=== PATIENT | male | born 1970 | race Caucasian/White ===

== ENCOUNTER 2020-08-26 22:30 | Emergency (ER) | payer BC, OTHER ==
[2020-08-26] MEDS ORDERED: fentaNYL 100 MCG/2 ML SDV IM ONE (22:57)
--- NOTE | 2020-08-26 23:03 | EDM.PDOC ---
ED HPI GENERAL MEDICAL PROBLEM - General Chief Complaint: Upper Extremity Injury/Pain Stated Complaint: PAIN POST SURGERY Time Seen by Provider: 08/26/20 22:54 Source of Information: Reports: Patient, RN Notes Reviewed History Limitations: Reports: No Limitations - History of Present Illness INITIAL COMMENTS - FREE TEXT/NARRATIVE: 50-year-old gentleman presents emergency department today complaint of pain and redness over his left wrist, he recently had aspiration of ganglion cyst done and now over the last 12 hours he has developed redness and increased pain in that wrist has felt feverish Left Wrist Pain Score (Numeric/FACES): 10 - Related Data Allergies Allergy/AdvReac Type Severity Reaction Status Date / Time No Known Allergies Allergy Verified 08/26/20 22:44 Home Meds: Home Meds Methylphenidate HCl [Ritalin] 30 mg PO TID 08/26/20 [History] Past Medical History Musculoskeletal History: Reports: Fracture, Other (See Below) Other Musculoskeletal History: carpal tunnel Psychiatric History: Reports: ADD - Infectious Disease History Infectious Disease History: Reports: Chicken Pox, Hepatitis C - Past Surgical History Musculoskeletal Surgical History: Reports: Ganglion Cyst Social & Family History - Tobacco Use Tobacco Use Status *Q: Never Tobacco User - Caffeine Use Caffeine Use: Reports: Coffee - Recreational Drug Use Recreational Drug Use: No Review of Systems - Review of Systems Review Of Systems: See Below Respiratory: Reports: No Symptoms Cardiovascular: Reports: No Symptoms Skin: Reports: Bruising, Rash, Wound ED EXAM, GENERAL - Physical Exam Exam: See Below Free Text/Narrative:: Examination of the right wrist I do appreciate some erythema that is tender to the touch it is warm to the touch all over the right wrist he has limited range of motion secondary to pain radial pulses +2 Exam Limited By: No Limitations General Appearance: Alert, WD/WN, No Apparent Distress Course - Vital Signs Last Recorded V/S: Last Vital Signs Temp 99.1 F 08/26/20 22:46 Pulse 82 08/26/20 22:46 Resp 16 08/26/20 22:46 BP 137/91 H 08/26/20 22:46 Pulse Ox 97 08/26/20 22:46 - Orders/Labs/Meds Orders: Active Orders 24 hr Category Date Time Status fentaNYL [Sublimaze] Med 08/26/20 22:57 Once 50 mcg IM ONETIME ONE Medication Orders Fentanyl (Sublimaze) 50 mcg IM ONETIME ONE Stop: 08/26/20 22:58 Meds: Medications Generic Name Dose Route Start Last Admin Trade Name Renee PRN Reason Stop Dose Admin Fentanyl 50 mcg 08/26/20 22:57 Sublimaze IM 08/26/20 22:58 ONETIME ONE Departure - Departure Time of Disposition: 23:02 Disposition: Home, Self-Care 01 Condition: Fair Clinical Impression: Cellulitis of left wrist - Discharge Information Instructions: Cellulitis, Adult Referrals: PCP,None [Primary Care Provider] - Additional Instructions: Take full course of antibiotics, continue to use ibuprofen for baseline pain control use hydrocodone for breakthrough pain keep your follow-up appointment with orthopedics in the morning Sepsis Event Note (ED) - Evaluation Sepsis Screening Result: No Definite Risk - Focused Exam Vital Signs: Vital Signs Temp Pulse Resp BP Pulse Ox 08/26/20 22:46 99.1 F 82 16 137/91 H 97 08/26/20 22:41 99.1 F 82 16 137/91 H 97 - My Orders Last 24 Hours: My Active Orders 08/26/20 22:57 fentaNYL [Sublimaze] 50 mcg IM ONETIME ONE - Assessment/Plan Last 24 Hours: My Active Orders 08/26/20 22:57 fentaNYL [Sublimaze] 50 mcg IM ONETIME ONE Plan: Assessment Acuity = acute Site and laterality = left wrist cellulitis Etiology = probable bacterial Manifestations = none Location of injury = Home Lab values = none Plan He was provided 50 mcg fentanyl IM x1 placed on antibiotics Keflex 500 mg p.o. 3 times daily x7 days and then hydrocodone 5/325 1 tab p.o. 3 times daily as needed total #4 he has a follow-up appointment with orthopedics tomorrow This note was dictated using [employer] recognition software please call with any questions on syntax or grammar.
== END 2020-08-26 23:16 | disposition home or self-care (01) ==
LOC: JP.ED 22:30
DX: L03.114 Cellulitis of left upper limb (principal)
CPT/HCPCS: 96372; 99283; J3010

== ENCOUNTER 2021-01-26 06:24 | Day surgery (SDC) | payer OTHER ==
[2021-01-26] MEDS ORDERED: Propofol 200 MG/20 ML SDV ONE ×2 (07:08→07:55)
[2021-01-26] MEDS ORDERED: fentaNYL 100 MCG/2 ML SDV ONE (07:09)
[2021-01-26] MEDS ORDERED: Midazolam 1 MG/ML 2 ML SDV ONE (07:09)
[2021-01-26] MEDS ORDERED: Sodium Chloride 0.9% 1,000 ML IV SCH (07:15)
--- NOTE | 2021-01-26 10:49 | OR ---
DATE OF PROCEDURE: 01/26/2021 SURGEON: Anthony Grover MD PROCEDURE: Colonoscopy. FINDINGS: 1. Diverticulosis, mild, mostly limited to sigmoid colon. 2. Ascending colon polyp, approximately 5 mm, completely removed using cold biopsy forceps. 3. Cecal polyp, approximately 5 mm, completely removed using cold biopsy forceps. COMPLICATIONS: None. TECHNICAL TRAINING COORDINATOR: None. PREOPERATIVE DIAGNOSIS: Screening colonoscopy. POSTOPERATIVE DIAGNOSIS: Screening colonoscopy. RISKS: Risks, benefits, alternatives, and limitations including, but not limited to, infection, bleeding, perforation, false positives and false negatives were explained to the patient. They wished to proceed. PROCEDURE IN DETAIL: The patient was placed in the left lateral decubitus position. Digital rectal exam was performed without abnormality. Scope was introduced and advanced atraumatically to the ileocecal valve. A photo was taken. The scope was brought back to the ascending, transverse, descending colon, and retroflexed. The aforementioned polyps were identified and completely removed. The diverticulosis was described as very mild, limited to sigmoid colon, and in early stages. No abnormalities on retroflexion. Greater than 8 minutes spent removing the scope. The prep was poor with approximately 85% to 90% of the luminal surface could be seen with solid and liquid stool remaining, suction irrigation techniques were used to remove this. Anthony Grover MD /[id number]
== END 2021-01-26 09:30 | disposition home or self-care (01) ==
LOC: JP.SDS 06:24
PROVIDERS: ATTEND Surgery
DX: Z12.11 Encounter for screening for malignant neoplasm of colon (principal); D12.2 Benign neoplasm of ascending colon; D12.0 Benign neoplasm of cecum; K57.30 Diverticulosis of large intestine without perforation or abscess without bleeding
CPT/HCPCS: 45380; J2250; J2704; J3010; J7030; 88305

== ENCOUNTER 2021-04-17 19:56 | Emergency (ER) | payer OTHER ==
[2021-04-17] MEDS ORDERED: Bacitracin Oint 1 GM U/D Packet TOP ONE (20:05)
--- NOTE | 2021-04-17 20:44 | EDM.PDOC ---
ED HPI GENERAL MEDICAL PROBLEM - General Chief Complaint: Laceration Stated Complaint: LACERATION TO THUMB Time Seen by Provider: 04/17/21 20:05 Source of Information: Reports: Patient History Limitations: Reports: No Limitations - History of Present Illness INITIAL COMMENTS - FREE TEXT/NARRATIVE: Wil is a 50-year-old male presenting to the ED for evaluation of a laceration to his left thumb. The patient was cutting bread and accidentally incised into the distal tip of the left thumb causing an avulsion laceration that abuts the nailbed but does not go into the nailbed. He was unable to get the bleeding under control prompting him to come in. The patient did try butterfly bandage, however, this was unable to stop the bleeding. Upon arrival to the ED, there is minimal bleeding. The patient believes that he is up-to-date on his tetanus. Left Finger-Thumb Pain Score (Numeric/FACES): 3 - Related Data Allergies Allergy/AdvReac Type Severity Reaction Status Date / Time No Known Allergies Allergy Verified 04/17/21 20:36 Home Meds: Home Meds Methylphenidate HCl [Ritalin] 30 mg PO TID 08/26/20 [History] Past Medical History Musculoskeletal History: Reports: Fracture, Other (See Below) Other Musculoskeletal History: infected cyst Neurological History: Reports: Other (See Below) Other Neuro History: head Psychiatric History: Reports: ADD Hematologic History: Reports: Blood Transfusion(s) Immunologic History: Reports: Other (See Below) Other Immunologic History: Hep c - Infectious Disease History Infectious Disease History: Reports: Chicken Pox, Hepatitis C - Past Surgical History Musculoskeletal Surgical History: Reports: Ganglion Cyst Social & Family History - Family History HEENT: Reports: None - Caffeine Use Caffeine Use: Reports: None ED ROS GENERAL - Review of Systems Review Of Systems: See Below Musculoskeletal: Reports: Hand Pain (Laceration at the tip of the left thumb) Skin: Reports: Wound (2.4 cm avulsion laceration of the tip of the left thumb) ED EXAM, SKIN/RASH Exam: See Below Exam Limited By: No Limitations General Appearance: Alert, No Apparent Distress Extremities: Normal Range of Motion, Normal Capillary Refill, Other (2.4 cm avulsion laceration at the tip of the left thumb. This wound abuts but does not include the nailbed. The area is slightly numb distal to the avulsion laceration.) Neurological: Alert, Oriented, Normal Cognition, No Motor/Sensory Deficits Skin: Wound/Incision (2.4 cm laceration at the tip of the left thumb.) Location, Skin: Upper Extremity, Left ED SKIN PROCEDURES - Laceration/Wound Repair Left Distal Digit - 1st (Thumb) Appearance: Subcutaneous Anesthetic Type: Local Local Anesthesia - Lidocaine (Xylocaine): 1% Plain Local Anesthetic Volume: 2cc Skin Prep: Chlorhexidine (Hibiciens) Exploration/Debridement/Repair: Wound Explored, In a Bloodless Field, Explored to Base Closed with: Sutures Lac/Wound length In cm: 2.4 Suture Size: 5-0 # of Sutures: 4 Suture Type: Nylon, Interrupted Course - Vital Signs Last Recorded V/S: Last Vital Signs Temp 36.2 C 04/17/21 20:40 Pulse 54 L 04/17/21 20:40 Resp 14 04/17/21 20:40 BP 118/73 04/17/21 20:40 Pulse Ox 97 04/17/21 20:40 - Orders/Labs/Meds Meds: Medications Discontinued Medications Generic Name Dose Route Start Last Admin Trade Name Renee PRN Reason Stop Dose Admin Bacitracin 1 dose 04/17/21 20:05 04/17/21 20:45 Bacitracin Oint 1 Gm U/D Packet TOP 04/17/21 20:06 1 dose ONETIME ONE Administration Lidocaine HCl 5 ml 04/17/21 20:05 04/17/21 20:45 Lidocaine 1% 5 Ml Sdv INJECT 04/17/21 20:06 5 ml ONETIME ONE Administration - Re-Assessments/Exams Free Text/Narrative Re-Assessment/Exam: 04/17/21 20:59 sutures will need to be removed in 7 to 10 days. We discussed watching for signs of infection. The patient is instructed keep the wound clean and dry for the next 24 hours until the scab forms. Departure - Departure Time of Disposition: 21:00 Disposition: Home, Self-Care 01 Clinical Impression: Laceration of left thumb without damage to nail Qualifiers: Encounter type: initial encounter Foreign body presence: without foreign body Qualified Code(s): S61.012A - Laceration without foreign body of left thumb without damage to nail, initial encounter - Discharge Information Instructions: Sutures, Etelvina, or Adhesive Wound Closure, [id number], Laceration Care, Adult, [id number] Referrals: PCP,None [Primary Care Provider] - Forms: ED Department Discharge Care Plan Goals: . If theYou may remove the stitches in 7 to 10 days. Watch for any signs of infection including increased redness, increased swelling, increased pain, or increased temperature of the thumb occur please let us know and we will start you on antibiotics. Please keep the wound clean and dry for the next 24 hours until the scab forms. You may remove the dressing after 24 hours. I would recommend keeping the wound covered with a bandage. You may apply a light coating of bacitracin to the wound twice daily. Contact us if you have any questions. Enjoy your trip to [facility], I am quite jealous but I am sure you will have a great time. And leave the [employer] knives alone. Sepsis Event Note (ED) - Focused Exam Vital Signs: Vital Signs Temp Pulse Resp BP Pulse Ox 04/17/21 20:40 36.2 C 54 L 14 118/73 97 - Problem List & Annotations (1) Laceration of left thumb without damage to nail SNOMED Code(s): 57895601343681044 Code(s): S61.012A - LACERATION W/O FB OF LEFT THUMB W/O DAMAGE TO NAIL, INIT Status: Acute Priority: Medium Current Visit: Yes Qualifiers: Encounter type: initial encounter Foreign body presence: without foreign body Qualified Code(s): S61.012A - Laceration without foreign body of left thumb without damage to nail, initial encounter - Problem List Review Problem List Initiated/Reviewed/Updated: Yes
== END 2021-04-17 21:12 | disposition home or self-care (01) ==
LOC: JP.ED 19:56
DX: S61.012A Laceration without foreign body of left thumb without damage to nail, initial encounter (principal); W26.8XXA Contact with other sharp object(s), not elsewhere classified, initial encounter
CPT/HCPCS: 12001; 99282-25

== ENCOUNTER 2022-07-06 14:20 | Emergency (ER) | payer OTHER ==
[2022-07-06] MEDS ORDERED: HYDROmorphone 0.5 MG/0.5 ML Syringe IM ONE (14:52)
[2022-07-06] MEDS ORDERED: HYDROmorphone 1 MG/ML Syringe IVPUSH ONE (15:32)
[2022-07-06] MEDS ORDERED: Sodium Chloride 0.9% 1,000 ML IV SCH (15:45)
[2022-07-06] MEDS ORDERED: Propofol 200 MG/20 ML SDV ONE (16:39)
== END 2022-07-06 17:30 | disposition home or self-care (01) ==
LOC: JP.ED 14:20
DX: S52.532A Colles' fracture of left radius, initial encounter for closed fracture (principal); Z79.899 Other long term (current) drug therapy; W00.9XXA Unspecified fall due to ice and snow, initial encounter
CPT/HCPCS: 25600; 73100; 73110; 73130; 96372; 96374; 99282; 99283; J1170; J2704; J7030; 25605

== ENCOUNTER 2023-01-17 12:11 | Emergency (ER) | payer OTHER ==
[2023-01-17] MEDS ORDERED: Sodium Chloride 0.9% 10 ML Syringe FLUSH PRN (12:24)
[2023-01-17 12:38] LABS: BASOPHILS ABSOLUTE AUTO 0.04 K/uL (0.00-0.10); BASOPHILS PERCENT AUTO 0.4 % (0.1-1.3); EOSINOPHILS ABSOLUTE AUTO 0.07 K/uL (0.00-0.40); EOSINOPHILS PERCENT AUTO 0.7 % (0.0-5.4); HEMATOCRIT 40.6 % (38.4-49.7); HEMOGLOBIN 13.9 g/dL (12.9-16.9); IMMATURE GRAN ABSOLUTE AUTO 0.04 K/uL (0.00-0.23); IMMATURE GRAN PERCENT AUTO 0.4 % (0.0-0.7); LYMPHOCYTES ABSOLUTE AUTO 2.04 K/uL (0.8-3.3); LYMPHOCYTES PERCENT AUTO 20.2 % (11.4-47.7); MEAN CORPUSCULAR HEMOGLOBIN 30.5 pg (31.6-35.5); MEAN CORPUSCULAR HGB CONC 34.2 g/dL (31.6-35.5); MONOCYTES ABSOLUTE AUTO 0.81 K/uL (0.20-0.90); NEUTROPHILS ABSOLUTE AUTO 7.08 K/uL (1.0-7.6); NEUTROPHILS PERCENT AUTO 70.3 % (40.0-78.1); PLATELET COUNT,PLT 223 K/uL (130-375); RED BLOOD CELL COUNT 4.56 M/uL (4.14-5.76); WHITE BLOOD CELL COUNT,WBC 10.1 K/uL (3.2-11.0)
[2023-01-17 12:59] LABS: INR 1.4; PROTHROMBIN TIME 13.6 sec (9.2-10.6); PTT,PARTIAL THROMBOPLSTIN TIME 27.4 sec (21.8-27.3)
[2023-01-17 13:00] LABS: A/G RATIO 1.1 (1.2-2.2); ALANINE AMINOTRANSFERASE,ALT 39 U/L (12-78); ALKALINE PHOSPHATASE 105 U/L (46-116); ASPARTATE AMNIOTRANSFERASE,AST 30 U/L (15-37); BILIRUBIN TOTAL 0.6 mg/dL (0.2-1.0); BLOOD UREA NITROGEN,BUN 14 mg/dL (7-18); CALCIUM 9.4 mg/dL (8.5-10.1); CARBON DIOXIDE,CO2 27 mmol/L (21-32); CHLORIDE,CL 103 mmol/L (100-108); CREATININE 0.8 mg/dL (0.8-1.3); ESTIMATED GFR 106 mL/min (>60); GLUCOSE RANDOM 94 mg/dL (74-106); POTASSIUM,K 3.6 mmol/L (3.6-5.2); PROTEIN TOTAL,TP 7.7 g/dL (6.4-8.2); SODIUM,NA 138 mmol/L (140-148)
[2023-01-17 13:01] LABS: ANION GAP 11.6 mmol/L (5.0-14.0)
[2023-01-17] MEDS ORDERED: fentaNYL 100 MCG/2 ML SDV IVPUSH ONE (13:14)
[2023-01-17] MEDS ORDERED: fentaNYL 100 MCG/2 ML SDV ONE (13:17)
== END 2023-01-17 14:12 ==
LOC: JP.ED 12:11
DX: S02.91XA Unspecified fracture of skull, initial encounter for closed fracture (principal); S06.9X1A Unspecified intracranial injury with loss of consciousness of 30 minutes or less, initial encounter; S01.01XA Laceration without foreign body of scalp, initial encounter; R53.1 Weakness; R20.0 Anesthesia of skin; W22.8XXA Striking against or struck by other objects, initial encounter
CPT/HCPCS: 36415; 70450; 72125; 76377; 80053; 85025; 85610; 85730; 96374; 99285; G0390; J3010